=== PATIENT | female | born 1955 | race Caucasian/White ===

== ENCOUNTER 2022-09-06 17:55 | Emergency (ER) | payer OTHER ==
[~2022-09-06] VITALS: Ht 167.6 cm; Wt 83.9 kg
[~2022-09-06 17:55] MED LIST: FARXIGA10 MG PO; GLIP10 PO; HYDCHL25 PO; LIRA0.6P SQ; Prilosec Otc20 MG PO; VERA120ERB PO
[2022-09-06 19:24] LABS: Influenza B, PCR NEGATIVE (NEGATIVE); Resp Syncytial Virus, PCR NEGATIVE (NEGATIVE); SARS-Cov-2 (COVID-19) PCR, MMC NEGATIVE (NEGATIVE)
[2022-09-06 19:25] LABS: Influenza A, PCR POSITIVE (NEGATIVE)
[2022-09-06] MEDS ORDERED: DOXY100 PO (23:16)
== END 2022-09-06 23:59 | disposition home or self-care (01) ==
LOC: ER 17:55
PROVIDERS: Emergency Medicine
DX: J10.00 Influenza due to other identified influenza virus with unspecified type of pneumonia (principal); E11.9 Type 2 diabetes mellitus without complications; I10 Essential (primary) hypertension; K21.9 Gastro-esophageal reflux disease without esophagitis; Z91.041 Radiographic dye allergy status; Z79.899 Other long term (current) drug therapy; Z79.84 Long term (current) use of oral hypoglycemic drugs
CPT/HCPCS: 0241U; 71046; A9270; J3010; J7030

== ENCOUNTER 2022-09-09 07:17 | Emergency (ER) | payer OTHER ==
[~2022-09-09 07:17] MED LIST changes: +DOXY100 PO
[2022-09-09] MEDS ORDERED: IBUP600 PO (08:28)
== END 2022-09-09 08:55 | disposition home or self-care (01) ==
DX: S42.031A Displaced fracture of lateral end of right clavicle, initial encounter for closed fracture (principal); W07.XXXA Fall from chair, initial encounter; E11.9 Type 2 diabetes mellitus without complications; I10 Essential (primary) hypertension; Z88.8 Allergy status to other drugs, medicaments and biological substances; Z91.041 Radiographic dye allergy status; Z79.899 Other long term (current) drug therapy

== ENCOUNTER 2022-09-13 09:42 | Inpatient (IN) | payer OTHER ==
[~2022-09-13] VITALS: Ht 167.6 cm; Wt 74.9 kg
[~2022-09-13 09:42] MED LIST changes: +IBUP600 PO; -LIRA0.6P SQ; +OMEP20ER PO; -Prilosec Otc20 MG PO; +VICTOZA 2-0.6 MG/0.1 SC
[2022-09-13 10:59] LABS: Hematocrit 35.2 % (33.0-51.0); Hemoglobin 11.4 g/dL (11.5-16.0); Mean Corpuscular HGB 21.3 pg (26.0-34.0); Mean Corpuscular HGB Conc 32.4 g/dL (31.5-36.5); Mean Corpuscular Volume 66 fL (80-100); Mean Platelet Volume 9.5 fL (9.1-12.4); Platelet Count 261 K/mm3 (150-400); RDW Coefficient Variation 16.1 % (11.7-14.2); RDW Standard Deviation 36.1 fL (35.1-46.3); Red Blood Cell Count 5.35 M/mm3 (3.80-5.20)
[2022-09-13 11:17] LABS: Magnesium, Blood 1.9 mg/dL (1.6-2.4)
[2022-09-13 11:19] LABS: Albumin, Blood 3.3 g/dL (3.4-5.0); Albumin/Globulin Ratio 0.8 (0.8-1.8); Bilirubin, Total 0.9 mg/dL (0.1-1.0); Bun/Creatinine Ratio 29.8 (12.0-20.0); Creatinine, Blood 0.37 mg/dL (0.40-1.00); Globulin, Blood 3.9 g/dL (2.2-4.0); Potassium, Blood 2.7 mmol/L (3.5-5.5); Total Protein, Blood 7.2 g/dL (6.4-8.2)
[2022-09-13 11:46] LABS: Beta-hydroxybutyrate 31.6 mg/dL (0.2-2.8); Magnesium, Blood 1.9 mg/dL (1.6-2.4)
[2022-09-13 11:59] LABS: Base Excess Venous 9.8 mmol/L; Bicarbonate Venous 32.1 mmol/L (24.0-30.0); PCO2 Venous 45.5 mmHg (38-42); pH Blood Venous 7.47 (7.34-7.37)
[2022-09-13 12:17] LABS: BAND PERCENT MAN 1 % (0-8); BASOPHILS PERCENT MAN 0 % (0-2); EOSINOPHILS PERCENT MAN 0 % (0-6); LYMPHOCYTES PERCENT MAN 9 % (21-46); MONOCYTES ABSOLUTE MAN 0.62 K/mm3 (0.16-1.47); MONOCYTES PERCENT MAN 7 % (4-13); MYELOCYTE ABSOLUTE MAN 0.17 K/mm3 (0.00-0.00); MYELOCYTE PERCENT MAN 2 % (0-0); NEUTROPHILS ABSOLUTE MAN 7.29 K/mm3 (1.96-9.15); SEG NEUTROPHILS PERCENT MAN 81 % (41-73); TOTAL CELLS COUNTED 100
--- NOTE | 2022-09-13 14:45 | NUR ---
IP DISCUSSION RE: ISOLATION DISCUSSED PATIENT'S POSITIVE INFLUENZA A TEST ON 09/06. IP SAYS ISOLATION IS X 7 DAYS OR 24 HOURS AFTER LAST FEVER-AND TO GO OFF WHICH EVER ONE IS LONGER. PLACED IN ISOLATION UNTIL LAST FEVER DATE/TIME CAN BE DETERMINED.
[2022-09-13] MEDS ORDERED: PIOG15 PO (15:10)
[2022-09-13] MEDS ORDERED: ATOR10 PO (15:11)
[2022-09-13] MEDS ORDERED: Aspir 8181 MG PO (15:11)
[2022-09-13] MEDS ORDERED: CENTRUM SILVER1 EAC2 PO (15:11)
[2022-09-13] MEDS ORDERED: CO Q10100 MG PO (15:12)
[2022-09-13] MEDS ORDERED: VITAMIN D31000 UNI1 PO (15:13)
[2022-09-13] MEDS ORDERED: TOCO1000 PO (15:13)
[2022-09-13] MEDS ORDERED: Pulmicort Fle180 MCG INH (15:14)
[2022-09-13 21:38] LABS: Bun/Creatinine Ratio 23.9 (12.0-20.0); Calcium, Blood 8.3 mg/dL (8.5-10.1); Creatinine, Blood 0.42 mg/dL (0.40-1.00)
[2022-09-14 01:41] LABS: Bun/Creatinine Ratio 20.2 (12.0-20.0); Calcium, Blood 8.4 mg/dL (8.5-10.1); Creatinine, Blood 0.5 mg/dL (0.40-1.00); Potassium, Blood 3.1 mmol/L (3.5-5.5)
[2022-09-14 03:31] LABS: Source, Urine Foley catheter
[2022-09-14 03:33] LABS: Bilirubin, Urine Neg (Neg); Blood, Urine Neg (Neg); Glucose Qualitative, Urine 4+ (Neg); Ketones, Urine 3+ (Neg); Leukocyte Esterase, Urine Neg (Neg); Nitrite, Urine Neg (Neg); Protein, Urine Neg (Neg); Specific Gravity, Urine 1.005 (1.003-1.022); Urobilinogen, Urine NORM (Normal)
[2022-09-14 03:38] LABS: Appearance, Urine Clear (Clear); Color, Urine Pale Yellow (P-Yellow)
[2022-09-14 04:38] LABS: Calcium, Blood 8.4 mg/dL (8.5-10.1); Creatinine, Blood 0.5 mg/dL (0.40-1.00); Potassium, Blood 3.5 mmol/L (3.5-5.5)
--- NOTE | 2022-09-14 05:36 | NUR ---
END OF SHIFT SUMMARY NEURO: PT A&OX4. LETHARGIC. WILL MAKE EYE CONTACT AND ATTEND WHEN QUESTIONED AND FOLLOWING COMMANDS, BUT WILL FALL ASLEEP AGAIN IMMEDIATELY. PT DENIES NUMBNESS/TINGLING, VISION CHANGES OR HEADACHE. GENERALIZED WEAKNESS. RESPIRATORY: 1-2L NC WHEN SLEEPING. CLEAR BREATH SOUNDS APPRECIATED, RLL DIMINISHED. PRODUCTIVE WEAK COUGH WITH WHITE/YELLOW SPUTUM. PT DENIES SOB/DYSPNEA. EVEN RISE AND FALL OF CHEST. NO FLAIL CHEST NOTED ON RIGHT SIDE WITH RIGHT RIB FXs. CARDIAC: PT DENIES CHEST PAIN. NSR. 60-90 BPM. NORMOTENSIVE. SBP 110-130. CAP REFILL < 3 SECONDS. GI/- MILD DISTENTION AND FIRMNESS NOTED TO ABDOMEN. PT DENIED PAIN TO PALPATION. DEY CATHETER PLACED FOR STRICT I/Os. PT INCONTINENT OF BOWEL AND BLADDER, NURSE ATTRIBUTING TO EXTREME LETHARGY, PT STATED CONTINENT AT HOME. MUSCULOSKELETAL: CAN RAISE EXTREMITIES AGAINST GRAVITY BUT CANNOT OVERCOME RESISTANCE.
[2022-09-14 06:55] LABS: Bun/Creatinine Ratio 18.8 (12.0-20.0); Calcium, Blood 8.9 mg/dL (8.5-10.1); Creatinine, Blood 0.48 mg/dL (0.40-1.00)
--- NOTE | 2022-09-14 07:15 | NUR ---
ASSUMED CARE AT 0715 BEDSIDE REPORT RECIEVED FROM VICTORIA GEORGE. PT APPEARS TO BE RESTING COMFORTABLY. IS ON 2L NC AND HAS A PRODUCTIVE WEAK COUGH, PT IS SELF SUCTIONING. VERBAL RESPONSES REPORTEDLY SLOW BUT OTHERWISE INTACT NEUROLOGICALLY. CBG'S ORDERED EVERY 3 HOURS AND RECENT NA IS 125. V/S STABLE THROUGHOUT NOC SHIFT. HAS DEY DRAINING CLEAR YELLOW URINE, PIV X2 FLUSHING WELL. NS D/C'D OVERNIGHT DUE TO INCREASING SODIUM. PT WAS BOLUSED WITH 500ML D5. RN TO CONTINUE TO MONITOR.
[2022-09-14 07:58] LABS: Hematocrit 32.3 % (33.0-51.0); Hemoglobin 10.2 g/dL (11.5-16.0); Mean Corpuscular HGB 21.3 pg (26.0-34.0); Mean Corpuscular HGB Conc 31.6 g/dL (31.5-36.5); Mean Corpuscular Volume 67 fL (80-100); Mean Platelet Volume 9.8 fL (9.1-12.4); Platelet Count 253 K/mm3 (150-400); RDW Coefficient Variation 16.1 % (11.7-14.2); RDW Standard Deviation 38.2 fL (35.1-46.3); White Blood Cell Count 6.43 K/mm3 (4.00-11.30)
[2022-09-14 08:46] LABS: BAND PERCENT MAN 2 % (0-8); BASOPHILS PERCENT MAN 0 % (0-2); EOSINOPHILS ABSOLUTE MAN 0.06 K/mm3 (0.00-0.68); EOSINOPHILS PERCENT MAN 1 % (0-6); LYMPHOCYTES ABSOLUTE MAN 0.96 K/mm3 (0.84-5.20); LYMPHOCYTES PERCENT MAN 15 % (21-46); METAMYELOCYTE ABSOLUTE MAN 0.32 K/mm3 (0.00-0.00); METAMYELOCYTE PERCENT MAN 5 % (0-0); MONOCYTES ABSOLUTE MAN 0.12 K/mm3 (0.16-1.47); MONOCYTES PERCENT MAN 2 % (4-13); MYELOCYTE ABSOLUTE MAN 0.12 K/mm3 (0.00-0.00); MYELOCYTE PERCENT MAN 2 % (0-0); NEUTROPHILS ABSOLUTE MAN 4.82 K/mm3 (1.96-9.15); SEG NEUTROPHILS PERCENT MAN 73 % (41-73); TOTAL CELLS COUNTED 100
[2022-09-14 11:06] LABS: Bun/Creatinine Ratio 16.9 (12.0-20.0); Calcium, Blood 8.8 mg/dL (8.5-10.1); Creatinine, Blood 0.53 mg/dL (0.40-1.00); Potassium, Blood 4.1 mmol/L (3.5-5.5)
--- NOTE | 2022-09-14 11:45 | NUR ---
Pt. is awake in bed and welcomes my visit. Spouse is present. Pt. is pleasant but is somewhat guarded about spiritual care. Establish rapport with Pt. and spouse. Pt. and spouse both verbalized gratitude for the spiritual care visit.
[2022-09-14 14:05] LABS: Bun/Creatinine Ratio 20.1 (12.0-20.0); Calcium, Blood 8.9 mg/dL (8.5-10.1); Creatinine, Blood 0.5 mg/dL (0.40-1.00)
--- NOTE | 2022-09-14 16:13 | NUR ---
DR. HENRY TO BEDSIDE SERIAL BMP'S D/C'D. NEW ORDERS FOR STAT RENAL PANEL, SERUM OSMOALITY, URIC ACID, TSH AND CORTISOL LEVEL. DR. HENYR WANTS TO BE NOTIFIED WITH RESULTS OF STAT LABS. ALL ABOVE ORDERS ENTERED. RN TO CONTINUE TO MONITOR.
[2022-09-14 18:06] LABS: Albumin, Blood 2.8 g/dL (3.4-5.0); Anion Gap 7 mmol/L (6-16); Blood Urea Nitrogen 9 mg/dL (8-24); Bun/Creatinine Ratio 16.9 (12.0-20.0); CO2, Blood 29 mmol/L (21-32); Calcium, Blood 8.7 mg/dL (8.5-10.1); Chloride, Blood 90 mmol/L (98-108); Creatinine, Blood 0.53 mg/dL (0.40-1.00); Glomerular Filtration Rate 103 (60-); Glucose, Blood 162 mg/dL (70-99); Phosphorus, Blood 1.8 mg/dL (2.5-4.9); Potassium, Blood 3.9 mmol/L (3.5-5.5); Sodium, Blood 126 mmol/L (136-145)
[2022-09-14 18:16] LABS: Uric Acid, Blood 5.8 mg/dL (2.6-6.0)
--- NOTE | 2022-09-14 18:36 | NUR ---
SHIFT SUMMARY DR. HENRY CONTACTED WITH ALL STAT LAB RESULTS. NEW TELEPHONE ORDERS RECEIVED AND ENTERED. REPORT CALLED TO VICTORIA DUMONT- PT TO BE TRANSFERRED TO MEDICAL FLOOR VIA BED. ALL NEW ORDERS FROM DR. HENRY REVIEWED WITH RECEIVING RN. PT HAS BEEN A/O ALL SHIFT. OOB X2 W/1 PERSON ASSIST. WORKED WITH PT/OT ON MOVEMENT ACCOMODATING CLAVICLE AND RIB FX'S. V/S STABLE. ADA DIET, APETITE IMPROVING. 1 BM LOOSE BROWN MEDIUM. SKIN INTACT WITH OLD BRUISE TO LEFT SHOULDER SUSTAINED IN A FALL SEVERAL DAYS AGO. PIV X2 SL, BOTH FLUSH WELL. AND BEDSIDE, BOTH PT AND UPDATED ON POC, ALL QUESTIONS ANSWERED.
--- NOTE | 2022-09-14 19:11 | NUR ---
PT TRANSFERED FROM ICU. ORIENTED TO THE ROOM. REPORT GIVEN TO NIGHT RN
[2022-09-15 06:43] LABS: Hematocrit 33.4 % (33.0-51.0); Hemoglobin 10.3 g/dL (11.5-16.0); Mean Corpuscular HGB 21.2 pg (26.0-34.0); Mean Corpuscular HGB Conc 30.8 g/dL (31.5-36.5); Mean Corpuscular Volume 69 fL (80-100); Mean Platelet Volume 9.3 fL (9.1-12.4); NRBC ABSOLUTE 0.02 K/mm3 (0.00-0.02); NRBC Auto 0.2 /100 WBC (0.0-0.2); Platelet Count 292 K/mm3 (150-400); RDW Coefficient Variation 16.7 % (11.7-14.2); RDW Standard Deviation 39.9 fL (35.1-46.3); Red Blood Cell Count 4.85 M/mm3 (3.80-5.20); White Blood Cell Count 8.78 K/mm3 (4.00-11.30)
[2022-09-15 07:05] LABS: Iron Serum 26 ug/dL (50-170); Magnesium, Blood 1.9 mg/dL (1.6-2.4); Total Iron Binding Capacity 290 ug/dL (250-450)
[2022-09-15 07:17] LABS: BASOPHILS PERCENT MAN 0 % (0-2); EOSINOPHILS PERCENT MAN 0 % (0-6); LYMPHOCYTES % ATYPICAL MANUAL 2 % (0-0); LYMPHOCYTES ABSOLUTE MAN 1.66 K/mm3 (0.84-5.20); LYMPHOCYTES PERCENT MAN 17 % (21-46); MONOCYTES ABSOLUTE MAN 0.61 K/mm3 (0.16-1.47); MONOCYTES PERCENT MAN 7 % (4-13); MYELOCYTE ABSOLUTE MAN 0.35 K/mm3 (0.00-0.00); MYELOCYTE PERCENT MAN 4 % (0-0); NEUTROPHILS ABSOLUTE MAN 6.14 K/mm3 (1.96-9.15); SEG NEUTROPHILS PERCENT MAN 70 % (41-73); TOTAL CELLS COUNTED 100
[2022-09-15 07:37] LABS: Albumin, Blood 2.7 g/dL (3.4-5.0); Anion Gap 7 mmol/L (6-16); Blood Urea Nitrogen 11 mg/dL (8-24); Bun/Creatinine Ratio 23.3 (12.0-20.0); CO2, Blood 30 mmol/L (21-32); Calcium, Blood 8.5 mg/dL (8.5-10.1); Chloride, Blood 90 mmol/L (98-108); Creatinine, Blood 0.47 mg/dL (0.40-1.00); Ferritin, Serum 91 ng/mL (8-252); Glomerular Filtration Rate 106 (60-); Glucose, Blood 171 mg/dL (70-99); Phosphorus, Blood 2.4 mg/dL (2.5-4.9); Potassium, Blood 3.4 mmol/L (3.5-5.5); Sodium, Blood 127 mmol/L (136-145)
--- NOTE | 2022-09-15 07:58 | NUR ---
CAFE ASSOCIATE SUMMARY: A&Ox4, THOUGH DROWSY AT BEGINNING OF SHIFT. PERKED UP AFTER RECEIVING IV NA+ PHOSPHATE IV. MEDICATED BACK PAIN x2-3 PRN FENTANYL AND TRAMADOL. DEY PATENT AND DRAINING TO GRAVITY. TELE SINUS RHYTHM. WILL REPORT TO ONCOMING RN.
--- NOTE | 2022-09-15 19:00 | NUR ---
SHIFT SUMMARY: PATIENT A&OX4. PLEASANT AND COOPERATIVE WITH CARE. USES CALL LIGHT APPROPRIATELY AND ABLE TO ADVOCATE FOR HER NEEDS. PATIENT ON TELE AND HAS BEEN IN SR AT 80'S BPM PER CLINICAL NUTRITION MANAGER, PHONG KHOURY. DENIES CP/CHEST DISCOMFORT. LUNGS CLEAR T/O TO AUSCULTATION. PATIENT BS WAS IN 160'S-250'S RANGES THIS SHIFT. RECEIVED INSULIN COVERAGE PER EMAR. PATIENT REPORTS PAIN OF RIGHT SHOULDER AND RIBS PAIN. MEDICATED FENTANYL X1, TYLENOL X1, ULTRAM X1 AND NORCO X1 T/O SHIFT. PATIENT REPORTS OF MILD RELIEF FROM ALL PAIN MEDICATIONS WAS GIVEN. PATIENT REPORTS OF NAUSEA BUT NO VOMITING. MEDICATED X1 WITH ZOLFRAN FOR NAUSEA. VITAL SIGNS REVIEWED. SPOUSE AT BEDSIDE T/O THE DAY. QUESTIONS AND CONCERNS WERE ANSWERED. SPOUSE STATED UNDERSTANDING AND NO FURTHER QUESTIONS AT THIS TIME. DEY CATHCARE DONE, PATENT DRAINING TO GRAVITY WITH YELLOW URINE. IV TO R FOREARM AND L HAND SALINE LOCKED. CALL LIGHT IN REACH.
--- NOTE | 2022-09-16 04:23 | NUR ---
SHIFT SUMMARY NO OVERNGIHT EVENTS. PT CALM AND COOPERATIVE. SLEPT MOST OF SHIFT. REPORTING PAIN TO R RIBS AND R CLAVICLE. ADMINISTERED NORCO, SEE MAR. DEY CATHETER IN PLACE, DRAINING WELL. DENIES ANY OTHER S/S OF DISTRESS. CONTINUING TO MONITOR NA LEVEL. 1,000ML FLUID RESTRICTION, PT AWARE AND COOPERATIVE. PT ABLE TO MAKE NEEDS KNOWN.
[2022-09-16 06:03] LABS: Hematocrit 36.1 % (33.0-51.0); Hemoglobin 10.8 g/dL (11.5-16.0)
[2022-09-16 06:32] LABS: Albumin, Blood 2.7 g/dL (3.4-5.0); Anion Gap 9 mmol/L (6-16); Blood Urea Nitrogen 11 mg/dL (8-24); CO2, Blood 28 mmol/L (21-32); Calcium, Blood 8.8 mg/dL (8.5-10.1); Chloride, Blood 94 mmol/L (98-108); Creatinine, Blood 0.52 mg/dL (0.40-1.00); Glomerular Filtration Rate 103 (60-); Glucose, Blood 214 mg/dL (70-99); Magnesium, Blood 2.2 mg/dL (1.6-2.4); Phosphorus, Blood 3.1 mg/dL (2.5-4.9); Potassium, Blood 3.6 mmol/L (3.5-5.5); Sodium, Blood 131 mmol/L (136-145)
[2022-09-16] MEDS ORDERED: FURO20 PO (11:22)
[2022-09-16] MEDS ORDERED: Norco 5-325 Ta1 EACH PO (11:22)
[2022-09-16] MEDS ORDERED: Amlodipine Bes2.5 MG PO (11:22)
[2022-09-16] MEDS ORDERED: POTA10T PO (11:23)
[2022-09-16] MEDS ORDERED: SODCHL1 PO (11:23)
[2022-09-16] MEDS ORDERED: AZIT250 PO (11:24)
[2022-09-16] MEDS ORDERED: LACT PO (11:24)
[2022-09-16] MEDS ORDERED: CEPH500 PO (11:25)
--- NOTE | 2022-09-16 12:01 | NUR ---
PT DISCHARGED THE PT AND HERFAMILY VERBALIZED UNDERSTANDING OF THE DC INSTRUCTIONS. THE PT WAS REMINDED TO CALLL HER PCP TO SCHEDULE A POST HOSPITAL REVIEW. THE PTS PRESCRIPTIONS WERE FAXED TO JOSE A PERSON REQUESTED. PT WAS TRANSFERED VIA WHEECHAIR ACCOMPANIED BY A RN AND HER FAMILY
== END 2022-09-16 12:11 | disposition home health service (06) | DRG 643 ==
LOC: ER 09:42 → ICUW 12:52 → ICUE 12:52 → MEDS 09-14 18:40
PROVIDERS: Family Medicine; Internal Medicine; Internal Medicine Nephrology; Physician Assistant; Student in an Organized Health Care Education/Training Program; ADMIT Internal Medicine
DX: E22.2 Syndrome of inappropriate secretion of antidiuretic hormone (principal); J10.00 Influenza due to other identified influenza virus with unspecified type of pneumonia; S22.31XA Fracture of one rib, right side, initial encounter for closed fracture; E87.4 Mixed disorder of acid-base balance; E87.6 Hypokalemia; E83.39 Other disorders of phosphorus metabolism; K21.9 Gastro-esophageal reflux disease without esophagitis; S42.031A Displaced fracture of lateral end of right clavicle, initial encounter for closed fracture; E86.0 Dehydration; E11.22 Type 2 diabetes mellitus with diabetic chronic kidney disease; I12.9 Hypertensive chronic kidney disease with stage 1 through stage 4 chronic kidney disease, or unspecified chronic kidney disease; E88.09 Other disorders of plasma-protein metabolism, not elsewhere classified; D63.1 Anemia in chronic kidney disease; N18.2 Chronic kidney disease, stage 2 (mild); C44.01 Basal cell carcinoma of skin of lip; J45.909 Unspecified asthma, uncomplicated; W18.30XA Fall on same level, unspecified, initial encounter; Z91.041 Radiographic dye allergy status; Z79.899 Other long term (current) drug therapy; Z79.2 Long term (current) use of antibiotics; Z98.890 Other specified postprocedural states
CPT/HCPCS: 36415; 71045; 80048; 80053; 80069; 81003; 82010; 82533; 82607; 82728; 82746; 82803; 82947; 83540; 83550; 83690; 83735; 83930; 83935; 84145; 84295; 84300; 84443; 84550; 85014; 85018; 85025; 93005; 93010; 96361; 96365; 96366; 96368; 96375; 97110; 97162; 97166; 97530; 99285-25; A9270; J0456; J0696; J2405; J3010; J3475; J3480; J7030; J7050; J7060; J7070